=== PATIENT | male | born 1945 | race Caucasian/White ===

== ENCOUNTER 2022-07-23 09:03 | Day surgery (SDC) | payer MEDICARE, SELFPAY ==
--- NOTE | 2022-07-10 11:42 | PC.NURSE ---
07/10: spoke with patient. States surgery was postponed due to positive Covid test. He has an H&P scheduled with Dr Flower at [facility] on 07/19 and a Covid test at that time. He denies questions.
[2022-07-23] VITALS (24 sets, daily range): BP systolic 81–143; BP diastolic 52–91; PULSE 50–96; RESP 12–20; TEMP 36–36.6; O2SAT 91–97; BMI 31.2
[2022-07-23] MEDS: LACTATED RINGERS 1000 ML 1,000 ML 100 ML IV (09:30)
[2022-07-23] MEDS: SODIUM CHLORIDE 0.9 % (FLUSH) 10 ML SYRINGE IVF (10:08)
--- NOTE | 2022-07-23 10:44 | CRLHL7_ITS ---
For Patients: As a result of the Cures Act, medical imaging exams and procedure reports are released immediately into your electronic medical record. You may view this report before your referring provider. If you have questions, please contact your health care provider. Indication: post op Technique: Two views left knee Findings/Impression: Hardware from a left total knee arthroplasty is in satisfactory position. Bone alignment is normal. No sign of acute fracture. Postop changes are within normal limits. Dictated by Redd Tariq MD @ 07/23/2022 3:46:52 PM (Electronically Signed)
[2022-07-23] MEDS: OXYCODONE (CR) 10 MG TAB.ER.12H PO (11:45)
[2022-07-23] MEDS: CELECOXIB 200 MG CAPSULE PO ×2 (11:45→21:22)
[2022-07-23] MEDS: ACETAMINOPHEN 500 MG TABLET 1000 MG PO ×2 (11:45→18:31)
[2022-07-23] MEDS: MIDAZOLAM HCL 1 MG/ML inj IVP (11:53)
[2022-07-23] MEDS: fentaNYL 100 MCG/2 ML inj IVP (11:53)
[2022-07-23] MEDS: TRANEXAMIC ACID 100 MG/ML INJ 1000 MG IV (12:45)
--- NOTE | 2022-07-23 12:46 | P.NB_ITS ---
Nerve Block Nerve Block Time Seen by Provider: 11:53 Date Seen: 07/23/22 Type of block requested by surgeon for post-operative analgesia: adductor canal Side: left Time out performed: Yes Verification of patient name: Yes Verification of date of : Yes Site marking: site marked Name of person performing procedure: Mikal Continuous monitoring Was continuous monitoring of O2 sat, B/P, windows laptop technician, recorded every 15 minutes?: Yes Procedure Checklist: sterile prep, needles and gloves Ultrasound guided. Images saved: Yes Medications given in 5ml increments after negative aspiration: Ropivicaine %: 0.5 mL: 20 Needle gauge: 20 Decadron (mg): 10 Precedex (mcg): 25 Patient tolerated procedure well: Yes Additional comments: Needle noted adjacent to nerve Block Charges Block Charge (with Pro Fee): Femoral Nerve Use of Ultrasound Machine for Block: Yes- US Guidance/pain block
--- NOTE | 2022-07-23 12:47 | W.PM.NB ---
Nerve Block Nerve Block Time Seen by Provider: 11:53 Date Seen: 07/23/22 Type of block requested by surgeon for post-operative analgesia: geniculars Side: left Time out performed: Yes Verification of patient name: Yes Verification of date of : Yes Site marking: site marked Name of person performing procedure: Mikal Continuous monitoring Was continuous monitoring of O2 sat, B/P, vehicle monitor technician, recorded every 15 minutes?: Yes Procedure Checklist: sterile prep, needles and gloves Medications given in 5ml increments after negative aspiration: Ropivicaine %: 0.5 mL: 9 Needle gauge: 25 Patient tolerated procedure well: Yes Block Charges Block Charge (with Pro Fee): Genicular Nerve Block Use of Ultrasound Machine for Block: No
[2022-07-23] MEDS: CEFAZOLIN 2 GM in 0.9 % SODIUM CHLORIDE Mini-bag 100 ML IVPB ×2 (12:50→18:35)
--- NOTE | 2022-07-23 13:37 | W.ANESCHARGE ---
Anesthesia Charges Start Date/Time Anesthesia Start Date: 07/23/22 Anesthesia Start Time: 12:29 Stop Date/Time Anesthesia Stop Date: 07/23/22 Anesthesia Stop Time: 14:40 Summary Emergency: No Extremes of Age: Over 71-CPT 82938
--- NOTE | 2022-07-23 14:03 | P.ORPRC_ITS ---
Procedure Note Date of procedure: 07/23/22 Procedure: PREOPERATIVE DIAGNOSIS: 1. Left knee osteoarthritis, primary, severe POSTOPERATIVE DIAGNOSIS: 1. Left knee osteoarthritis, primary, severe 2. Left knee loose body PROCEDURE: 1. Left total knee arthroplasty 2. Left knee loose body removal (25 mm in greatest dimension, large fragment) SURGEON: Addy Jesus MD. SUPERVISOR AUDIT CLERKS: GLADIS Payne - Of note, a skilled specimen preparation assistant was critical for this case to aid in patient positioning, tissue retraction, limb manipulation/positioning, and closure. ANESTHESIA: Spinal anesthetic EBL: 50ml IMPLANTS: DePuy J&J all cemented TKA - Attune PS femur size 8, size 7 tibia, 7 mm poly spacer, 41mm patella TOURNIQUET: 90 min at 300 torr COMPLICATIONS: None evident INDICATIONS: The patient is a pleasant 77-year-old male who has experienced severe left knee pain and difficulty bearing weight. Workup included x-rays which revealed severe osteoarthrosis in the knee. Given the deformity, the dysfunction, and the pain, as well as the failure of nonoperative management, recommendation was made for surgery. FINDINGS: Full-thickness chondral loss medial compartment with erosion the femur and tibia. Substantial chondromalacia patellofemoral and lateral compartments otherwise. Large posterior osteophyte and loose body. Loose body measured approximately 25 mm in greatest dimension. DESCRIPTION OF PROCEDURE: Following a thorough discussion of risks, benefits, and alternatives consent was obtained and the left knee was marked. The patient was brought to the operating room and placed supine on the operating table. Induction of anesthesia was undertaken. 2 g IV Ancef and 1 g tranexamic acid was administered within 1 hr of incision preoperatively. Proper time-out was performed identifying proper patient, site, procedure. The operative extremity was prepped and draped in the appropriate sterile fashion using ChloraPrep after the patient was positioned supine with all bony prominences well padded. A longitudinal, anterior, midline skin incision was made starting approximately 3cm proximal to the superior pole of the patella and advanced distal to the tibial tubercle. A median parapatellar arthrotomy was created. A medial subperiosteal sleeve was created with knife, ashby elevator and curved osteotome. The retropatellar fatpad was resected and the synovium in the suprapatellar pouch excised to visualize the anterior femoral cortex. Femoral preparation was performed via an intramedullary guide. Step drill allowed access into the femoral canal. The distal cutting guide was placed with 5? of valgus and 11 mm cut on the distal femur due to flexion contracture of 5-7 degrees. Femur was sized using a posterior referencing guide in 3? of external rotation. This found have a best fit with the sizing noted above. The 4 in 1 cutting block was then placed, and the distal femur shaped accordingly. The box cut was then created and the trial implant inserted to confirm appropriate fit. We turned our attention to the proximal tibia. Extramedullary guide was utilized for cutting with the goal of being 90 degree cut from the mechanical axis of the tibia in the varus/valgus plane utilizing tibial crest as the primary alignment. Initially a 1 mm resection was performed from the medial tibial plateau, but due to tightness remains still in full extension, 4 more mm did require resection. Ultimately, balancing was achieved in both flexion and extension in both varus and valgus. The knee was able to achieve full extension as well comfortably. The patella was initially measured and found have a thickness of 25 mm. It was resected back to approximately 14 mm. It was sized to be a best fit with as noted above. This was drilled, trial placed. All trials were placed and found to have an excellent stability and balance. At this stage, trial implants were removed, the knee was thoroughly irrigated with normal saline, and the cement was mixed. After irrigation, the knee was thoroughly dried, and cement placed, with the real tibial and femoral implants placed along with the patella. Trial poly spacer was placed and confirmed to have excellent range of motion and full extension, and the real poly spacer opened and inserted. All extra cement was removed, and a 3 min Betadine soak performed. Finally, a final irrigation round with normal saline was performed. Closure performed with 0 PDS and #0 Stratafix for the quad tendon/retinaculum. 2-0 Vicryl/Stratafix for the subcutaneous and 4-0 Monocryl for subcuticular closure. Dressings were applied and the patient was awoken from anesthesia aft er the tourniquet deflated and transferred the PACU in stable condition. A skilled specimen preparation assistant was critical for this case to aid in patient positioning, tissue retraction, bone exposure, limb manipulation/positioning, patient safety, and closure. PLAN: 1. Weight bear as tolerated operative extremity. 2. 23 hr perioperative antibiotics. 3. Ice. 4. PT/OT consults for ambulation assistance/mobility education. 5. Social work consult for discharge planning. 6. DVT prophylaxis with at SCDs, Andrea Hose, and aspirin twice daily.
--- NOTE | 2022-07-23 15:43 | W.ANESCHARGE ---
Anesthesia Charges Start Date/Time Anesthesia Start Date: 07/23/22 Anesthesia Start Time: 12:29 Stop Date/Time Anesthesia Stop Date: 07/23/22 Anesthesia Stop Time: 14:40 Summary Emergency: No Extremes of Age: Over 71-CPT 01843
--- NOTE | 2022-07-23 17:29 | PM.IMCN1 ---
Date of Consult Patient: Toshia Patient Consult date: 07/23/22 Primary Care Provider: Levi Flower MD Consult Narrative Reason for consult: Medical management of comorbidities Narrative: Seng Nguyễn is a 77 year old male who presented to the hospital today for an elective L TKA with Dr. Jesus of Orthopedic surgery. There were no surgical or anesthetic complications noted during procedure. Patient's H&P reviewed, PCP is Dr. Flower. 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 Rare ETOH. Review of Systems Status of ROS: Reports: 10 or more systems reviewed and unremarkable except as noted in History and below PFSH PFSH Medical History (Updated 07/23/22 @ 17:37 by Nabila Vyas MD) Erectile dysfunction YEYO (obstructive sleep apnea) Peyronie disease Surgical History (Updated 07/23/22 @ 17:37 by Nabila Vyas MD) Hx of cataract extraction Hx of wisdom tooth extraction S/P total knee arthroplasty Family History (Updated 06/12/22 @ 13:26 by Sheryl Bush RN) Mother Alzheimers disease Father Prostate cancer FH: total knee replacement Social History Smoking Status: Former smoker Do you use any of these nicotine containing products: None How often do you have a drink containing alcohol: monthly or less Alcohol type: beer and hard liquor How many standard drinks containing alcohol do you have on a typical day: 1 or 2 AUDIT-C Alcohol total score: 1 Non-prescribed substance use: denies use Caffeine: Yes (coffee, 1-2 cups/a.m.) Meds Home Medications and Allergies Home Medications Medication Instructions Recorded Confirmed Type sildenafil 100 mg tablet (Viagra) 50 mg PO DAILY PRN 06/21/22 06/21/22 History Allergies Allergy/AdvReac Type Severity Reaction Status Date / Time No Known Drug Allergies Allergy Unverified 06/21/22 14:03 Exam Narrative: Exam Narrative: GEN: Alert and oriented, mildly hard of hearing. Sitting comfortably in bed and nontoxic in appearance HEENT: Normal external ears, EOMIs bilaterally, no scleral icterus CV: Sinus bradycardia, no concerning murmurs rubs or gallops R: LCTA bilaterally without concerning wheezing, rales, or rhonchi, air movement adequate Ext: wwp, no concerning edema Skin: No concerning skin lesions or rashes on exposed skin Neuro: Nonfocal Psych: Appropriate Const: Vital Signs, click to edit/add: Vital Signs - 24 hr 07/23/22 10:51 07/23/22 12:15 07/23/22 12:00 Temperature 97.8 F Pulse Rate 56 L 58 L 59 L Pulse Rate [Pulse Oximeter] Respiratory Rate 16 14 14 Blood Pressure 137/78 113/78 111/77 Blood Pressure [Ri ght Arm] Pulse Oximetry 93 91 96 Oxygen Delivery Me thod Room Air Nasal Cannula Nasal Cannula Oxygen Flow Rate 2 2 07/23/22 11:50 07/23/22 11:46 07/23/22 14:35 Temperature 96.8 F L Pulse Rate 61 60 74 Pulse Rate [Pulse Oximeter] Respiratory Rate 16 16 12 Blood Pressure 121/79 118/84 81/53 L Blood Pressure [Ri ght Arm] Pulse Oximetry 97 97 95 Oxygen Delivery Me thod Nasal Cannula Nasal Cannula Room Air Oxygen Flow Rate 2 2 07/23/22 14:40 07/23/22 14:45 07/23/22 14:50 Temperature Pulse Rate 70 67 56 L Pulse Rate [Pulse Oximeter] Respiratory Rate 12 12 12 Blood Pressure 89/54 L 94/52 L 92/54 L Blood Pressure [Ri ght Arm] Pulse Oximetry 95 95 95 Oxygen Delivery Me thod Room Air Room Air Room Air Oxygen Flow Rate 2 2 2 07/23/22 14:55 07/23/22 15:00 07/23/22 15:06 Temperature 97.3 F L Pulse Rate 70 55 L 63 Pulse Rate [Pulse Oximeter] Respiratory Rate 12 12 12 Blood Pressure 95/61 94/55 L 91/59 L Blood Pressure [Ri ght Arm] Pulse Oximetry 95 96 96 Oxygen Delivery Me thod Room Air Room Air Room Air Oxygen Flow Rate 2 2 2 07/23/22 15:19 07/23/22 15:30 07/23/22 15:45 Temperature 97.2 F L 97.2 F L 97.2 F L Pulse Rate 66 Pulse Rate [Pulse Oximeter] 56 L 53 L Respiratory Rate 18 18 18 Blood Pressure Blood Pressure [Ri ght Arm] 120/76 124/73 122/89 Pulse Oximetry 94 94 Oxygen Delivery Me thod Room Air Room Air Room Air Oxygen Flow Rate 07/23/22 16:00 07/23/22 16:15 07/23/22 16:45 Temperature 97.5 F L 97.5 F L 97.5 F L Pulse Rate Pulse Rate [Pulse Oximeter] 56 L 58 L 50 L Respiratory Rate 18 18 18 Blood Pressure Blood Pressure [Ri ght Arm] 125/83 121/91 H 130/81 Pulse Oximetry 97 95 97 Oxygen Delivery Me thod Room Air Room Air Room Air Oxygen Flow Rate 0 0 0 Assessment and Plan Assessment and plan (1) S/P total knee arthroplasty: Status: Acute Plan - routine postoperative cares - pain management and prophylaxis per orthopedic surgery team - anticipate routine postoperative course
--- NOTE | 2022-07-23 18:43 | PC.NURSE ---
End of shift: Patient pleasant and cooperative. Patient vitally stable, lungs clear, BS WNL, IV running LR at 75ml. Patient denies pain. Patient tolerating regular diet, eating 100% of dinner. Patient sat to side of bed and dangled legs, patient attempted to ambulate 2 assist and did not have complete control of legs yet. Patient has not yet urinated. Patient left knee dressing C/D/I.
[2022-07-23] MEDS: LACTATED RINGERS 1000 ML 1,000 ML 75 ML IV (19:50)
[2022-07-23] MEDS: SENNOSIDES 1 TAB TABLET 2 TAB PO (21:21)
[2022-07-23] MEDS: ASPIRIN 81 MG TABLET EC PO (21:22)
[2022-07-23] MEDS: OXYCODONE 5 MG TABLET PO (21:53)
[2022-07-24] MEDS: 0.9 % SODIUM CHLORIDE 500 ML IV (00:07)
[2022-07-24] MEDS: OXYCODONE 5 MG TABLET PO ×3 (00:08→09:04)
[2022-07-24] MEDS: ACETAMINOPHEN 500 MG TABLET 1000 MG PO ×2 (00:09→05:53)
[2022-07-24] MEDS: CEFAZOLIN 2 GM in 0.9 % SODIUM CHLORIDE Mini-bag 100 ML IVPB (02:40)
[2022-07-24 03:00] VITALS: BP 115/67; PULSE 78; RESP 18; TEMP 36.9; O2SAT 96
--- NOTE | 2022-07-24 06:59 | PC.NURSE ---
[id number]: Patient pleasant and cooperative. Pain controlled with PRN Oxycodone x3. Dressing to L. knee C/D/I. CMS intact. Denies N/V. A1/walker/GB. Cryocuff in place. Fluid bolus administered for low urine output with results. Eating and voiding.
[2022-07-24 07:00] VITALS: BP 105/83; PULSE 89; RESP 20; TEMP 37.1; O2SAT 94
[2022-07-24 07:02] LABS: Hematocrit 43.8 % (37.0-53.0); Hemoglobin* 14.7 gm/dL (13.5-17.5); Mean Corpuscular HGB Conc 34 gm/dL (32-36); Mean Corpuscular Hemoglobin 30 pg (26-34); Mean Corpuscular Volume 89 fL (80-100); Platelet Count* 232 K/uL (140-440); Red Blood Count 4.94 m/uL (4.30-5.90); White Blood Count* 17.62 K/uL (4.50-11.00)
[2022-07-24 07:03] LABS: Basophils Percent Auto 0.1 % (0.0-3.0); Immature Granulocytes Pct Auto 1.2 %; Lymphocytes Percent Auto 4.7 % (20-44); Monocytes Percent Auto 4.7 % (0.0-11.0); Neutrophils Percent Auto 89.3 % (42.0-72.0); Slide Review Reflex No
[2022-07-24 07:07] LABS: Blood Urea Nitrogen* 16 mg/dL (7-30); Potassium* 3.9 mmol/L (3.6-5.1); Sodium* 136 mmol/L (135-149)
[2022-07-24 07:48] LABS: Est. Creatinine Clearance* 68.98; Estimated Glomerular Filt Rate 78 ml/min
--- NOTE | 2022-07-24 08:23 | PM.ORPN ---
Subjective Subjective Date Seen: 07/24/22 Principal diagnosis: Status postop day 1 left total knee arthroplasty Interval history: Patient reports doing well. No acute events over night. Pain managed with scheduled /PRN medications and ice. No pain when sitting still, increased pain with motion. DVT prophylaxis 81 mg aspirin by mouth twice daily, bilateral knee high Andrea stockings, and SCDs. Denies fevers, chills, aches, N/V, CP, SOB/PATTEN, tachycardia, or lightheadedness. Ortho Exam Narrative Exam Narrative: -Patient appears comfortable; no apparent acute distress -Alert and oriented times 3 -Operative knee moderately swollen; soft tissues supple; no ecchymosis; no erythematous streaking Warmth appropriate -Surgical dressing clean, dry, intact; no drainage -Bilateral calfs soft; no significant swelling, edema, tenderness, erythema, discoloration, warmth, or palpable cords -2+ DP/PT pulses, intact dermatomes and myotomes distally (5/5 strength) Const Vital Signs, click to edit/add: Vital Signs - 24 hr 07/23/22 10:51 07/23/22 12:15 07/23/22 12:00 Temperature 97.8 F Pulse Rate 56 L 58 L 59 L Pulse Rate [Pulse Oximeter] Respiratory Rate 16 14 14 Blood Pressure 137/78 113/78 111/77 Blood Pressure [Right Arm] Pulse Oximetry 93 91 96 Oxygen Delivery Method Room Air Nasal Cannula Nasal Cannula Oxygen Flow Rate 2 2 07/23/22 11:50 07/23/22 11:46 07/23/22 14:35 Temperature 96.8 F L Pulse Rate 61 60 74 Pulse Rate [Pulse Oximeter] Respiratory Rate 16 16 12 Blood Pressure 121/79 118/84 81/53 L Blood Pressure [Right Arm] Pulse Oximetry 97 97 95 Oxygen Delivery Method Nasal Cannula Nasal Cannula Room Air Oxygen Flow Rate 2 2 07/23/22 14:40 07/23/22 14:45 07/23/22 14:50 Temperature Pulse Rate 70 67 56 L Pulse Rate [Pulse Oximeter] Respiratory Rate 12 12 12 Blood Pressure 89/54 L 94/52 L 92/54 L Blood Pressure [Right Arm] Pulse Oximetry 95 95 95 Oxygen Delivery Method Room Air Room Air Room Air Oxygen Flow Rate 2 2 2 07/23/22 14:55 07/23/22 15:00 07/23/22 15:06 Temperature 97.3 F L Pulse Rate 70 55 L 63 Pulse Rate [Pulse Oximeter] Respiratory Rate 12 12 12 Blood Pressure 95/61 94/55 L 91/59 L Blood Pressure [Right Arm] Pulse Oximetry 95 96 96 Oxygen Delivery Method Room Air Room Air Room Air Oxygen Flow Rate 2 2 2 07/23/22 15:19 07/23/22 15:30 07/23/22 15:45 Temperature 97.2 F L 97.2 F L 97.2 F L Pulse Rate 66 Pulse Rate [Pulse Oximeter] 56 L 53 L Respiratory Rate 18 18 18 Blood Pressure Blood Pressure [Right Arm] 120/76 124/73 122/89 Pulse Oximetry 94 94 Oxygen Delivery Method Room Air Room Air Room Air Oxygen Flow Rate 07/23/22 16:00 07/23/22 16:15 07/23/22 16:45 Temperature 97.5 F L 97.5 F L 97.5 F L Pulse Rate Pulse Rate [Pulse Oximeter] 56 L 58 L 50 L Respiratory Rate 18 18 18 Blood Pressure Blood Pressure [Right Arm] 125/83 121/91 H 130/81 Pulse Oximetry 97 95 97 Oxygen Delivery Method Room Air Room Air Room Air Oxygen Flow Rate 0 0 0 07/23/22 17:15 07/23/22 18:15 07/23/22 19:00 Temperature 97.5 F L 97.7 F 97.5 F L Pulse Rate Pulse Rate [Pulse Oximeter] 52 L 76 91 Respiratory Rate 18 18 20 Blood Pressure Blood Pressure [Right Arm] 139/80 143/88 H 119/66 Pulse Oximetry 97 94 96 Oxygen Delivery Method Room Air Room Air Room Air Oxygen Flow Rate 0 0 0 07/23/22 20:00 07/23/22 21:00 07/23/22 23:00 Temperature 97.5 F L 97.7 F 97.7 F Pulse Rate Pulse Rate [Pulse Oximeter] 93 96 96 Respiratory Rate 18 18 18 Blood Pressure Blood Pressure [Right Arm] 120/78 130/81 130/81 Pulse Oximetry 94 95 95 Oxygen Delivery Method Room Air Room Air Room Air Oxygen Flow Rate 0 0 07/23/22 23:00 07/24/22 03:00 07/24/22 07:00 Temperature 98.4 F 98.8 F Pulse Rate Pulse Rate [Pulse Oximeter] 78 89 Respiratory Rate 18 20 Blood Pressure Blood Pressure [Right Arm] 115/67 105/83 Pulse Oximetry 95 96 94 Oxygen Delivery Method Room Air Room Air Oxygen Flow Rate 07/24/22 07:00 07/24/22 07:00 Temperature Pulse Rate Pulse Rate [Pulse Oximeter] 89 Respiratory Rate 20 Blood Pressure Blood Pressure [Right Arm] Pulse Oximetry 94 Oxygen Delivery Method Oxygen Flow Rate Assessment and Plan Assessment and plan (1) S/P total knee arthroplasty: Problem details: POD 1 left total knee arthroplasty Status: Acute Plan - Complete 23 hour perioperative antibiotics. - PT/OT consult for education and assistance. - Social work consult for discharge planning - Prescribed analgesics as needed - DVT prophylaxis: 81 mg aspirin by mouth twice daily, bilateral knee high Andrea Hose stockings and SCDs - Anticipation is for discharge to home with spouse (07/24/2022) if the patient remains medically stable, pain is controlled, and they are safe with mobilization.
--- NOTE | 2022-07-24 08:26 | P.DS_ITS ---
DS: Providers Provider Date Seen: 07/24/22 Date of admission: Med/Surg Recovery 07/23/2022 Primary care physician: Levi Flower MD Consults: 07/23/22 15:32 Consult to Occupational Therapy [CONS] Routine Comment: Reason(s) for OT Consult:: ADLs Prior to Discharge Any Restrictions?:: See Comment Comment: See nursing activity order for any restrictions. Consult to Physical Therapy [CONS] Routine Comment: Ambulate in the [place] today. Reason(s) for PT Consult:: TKA TX Protocol POD#0 Any Restrictions?:: See Comment Comment: See nursing activity order for any restrictions. Consult to Physician [CONS] Routine Comment: Consulting Provider: Hospitalists Has provider been notified: No Consult to Business Technology Analyst [CONS] Routine Comment: Reason for Consult:: Discharge Planning Needs Attending Physician on discharge: Addy Jesus MD Date of Discharge: 07/24/22 DS: Diagnosis Discharge Diagnosis (1) S/P total knee arthroplasty: Status: Acute Problem details: POD 1 left total knee arthroplasty due to left knee osteoarthritis, primary, severe DS: Summary Hospital Course Hospital Course: The patient has a history of left knee osteoarthritis, primary, severe. After appropriate preoperative evaluation, the patient underwent left total knee arthroplasty. Postoperatively given anticoagulation for deep vein thrombosis prophylaxis. They progressed to PT/OT and were felt ready and prepared for discharge to home with appropriate pain medication and anticoagulation medications. Status at Discharge Functional status at discharge: uses cane/walker Overall status at discharge: patient is progressing back to baseline Time Spent with Patient Time attestation: Total time spent providing and/or coordinating discharge services: Exam Const: Vital Signs, click to edit/add: Vital Signs - 24 hr 07/23/22 10:51 07/23/22 12:15 07/23/22 12:00 Temperature 97.8 F Pulse Rate 56 L 58 L 59 L Pulse Rate [Pulse Oximeter] Respiratory Rate 16 14 14 Blood Pressure 137/78 113/78 111/77 Blood Pressure [Ri ght Arm] Pulse Oximetry 93 91 96 Oxygen Delivery Me thod Room Air Nasal Cannula Nasal Cannula Oxygen Flow Rate 2 2 07/23/22 11:50 07/23/22 11:46 07/23/22 14:35 Temperature 96.8 F L Pulse Rate 61 60 74 Pulse Rate [Pulse Oximeter] Respiratory Rate 16 16 12 Blood Pressure 121/79 118/84 81/53 L Blood Pressure [Ri ght Arm] Pulse Oximetry 97 97 95 Oxygen Delivery Me thod Nasal Cannula Nasal Cannula Room Air Oxygen Flow Rate 2 2 07/23/22 14:40 07/23/22 14:45 07/23/22 14:50 Temperature Pulse Rate 70 67 56 L Pulse Rate [Pulse Oximeter] Respiratory Rate 12 12 12 Blood Pressure 89/54 L 94/52 L 92/54 L Blood Pressure [Ri ght Arm] Pulse Oximetry 95 95 95 Oxygen Delivery Me thod Room Air Room Air Room Air Oxygen Flow Rate 2 2 2 07/23/22 14:55 07/23/22 15:00 07/23/22 15:06 Temperature 97.3 F L Pulse Rate 70 55 L 63 Pulse Rate [Pulse Oximeter] Respiratory Rate 12 12 12 Blood Pressure 95/61 94/55 L 91/59 L Blood Pressure [Ri ght Arm] Pulse Oximetry 95 96 96 Oxygen Delivery Me thod Room Air Room Air Room Air Oxygen Flow Rate 2 2 2 07/23/22 15:19 07/23/22 15:30 07/23/22 15:45 Temperature 97.2 F L 97.2 F L 97.2 F L Pulse Rate 66 Pulse Rate [Pulse Oximeter] 56 L 53 L Respiratory Rate 18 18 18 Blood Pressure Blood Pressure [Ri ght Arm] 120/76 124/73 122/89 Pulse Oximetry 94 94 Oxygen Delivery Me thod Room Air Room Air Room Air Oxygen Flow Rate 07/23/22 16:00 07/23/22 16:15 07/23/22 16:45 Temperature 97.5 F L 97.5 F L 97.5 F L Pulse Rate Pulse Rate [Pulse Oximeter] 56 L 58 L 50 L Respiratory Rate 18 18 18 Blood Pressure Blood Pressure [Ri ght Arm] 125/83 121/91 H 130/81 Pulse Oximetry 97 95 97 Oxygen Delivery Me thod Room Air Room Air Room Air Oxygen Flow Rate 0 0 0 07/23/22 17:15 07/23/22 18:15 07/23/22 19:00 Temperature 97.5 F L 97.7 F 97.5 F L Pulse Rate Pulse Rate [Pulse Oximeter] 52 L 76 91 Respiratory Rate 18 18 20 Blood Pressure Blood Pressure [Ri ght Arm] 139/80 143/88 H 119/66 Pulse Oximetry 97 94 96 Oxygen Delivery Me thod Room Air Room Air Room Air Oxygen Flow Rate 0 0 0 07/23/22 20:00 07/23/22 21:00 07/23/22 23:00 Temperature 97.5 F L 97.7 F 97.7 F Pulse Rate Pulse Rate [Pulse Oximeter] 93 96 96 Respiratory Rate 18 18 18 Blood Pressure Blood Pressure [Ri ght Arm] 120/78 130/81 130/81 Pulse Oximetry 94 95 95 Oxygen Delivery Me thod Room Air Room Air Room Air Oxygen Flow Rate 0 0 07/23/22 23:00 07/24/22 03:00 07/24/22 07:00 Temperature 98.4 F 98.8 F Pulse Rate Pulse Rate [Pulse Oximeter] 78 89 Respiratory Rate 18 20 Blood Pressure Blood Pressure [Ri ght Arm] 115/67 105/83 Pulse Oximetry 95 96 94 Oxygen Delivery Me thod Room Air Room Air Oxygen Flow Rate 07/24/22 07:00 07/24/22 07:00 Temperature Pulse Rate Pulse Rate [Pulse Oximeter] 89 Respiratory Rate 20 Blood Pressure Blood Pressure [Ri ght Arm] Pulse Oximetry 94 Oxygen Delivery Me thod Oxygen Flow Rate DS: Data Data Completed and Pending Labs on day of discharge: Labs from last 24 hours 07/24/22 07/24/22 06:03 06:03 WBC 17.62 H RBC 4.94 Hgb 14.7 Hct 43.8 MCV 89 MCH 30 MCHC 34 Plt Count 232 Neut % (Auto) 89.3 H Lymph % (Auto) 4.7 L [place] % (Auto) 4.7 Eos % (Auto) 0.0 Baso % (Auto) 0.1 Neut # (Auto) 15.70 H Lymph # (Auto) 0.80 L [place] # (Auto) 0.80 Eos # (Auto) 0.00 Baso # (Auto) 0.00 Sodium 136 Potassium 3.9 BUN 16 Creatinine 1.0 Estimated Creat Clear 68.98 Estimated GFR 78 Discharge Plan Discharge Disposition: Home, Self-Care Discharging Surgeon: Adyd Jesus Follow-Up Appointment: 1 week PO with R[facility] Prescriptions: New sennosides-docusate sodium [Senna-S] 8.6-50 mg tablet 1 - 4 tab-cap PO BID PRN (Reason: constipation) Qty: 60 0RF Rx Instructions: Hold medication if experiencing loose stools. aspirin 81 mg tablet,delayed release (DR/EC) 81 mg PO BID Qty: 60 0RF Rx Instructions: Medication to help prevent blood clots postoperatively; take TWICE daily. celecoxib 100 mg capsule 100 mg PO BID Qty: 60 0RF acetaminophen 500 mg capsule 500 - 1,000 mg PO Q6H MDD 4000mg PRNQty: 100 0RF oxycodone 5 mg tablet 2.5 - 5 mg PO Q4-6H MDD 6 PRN (Reason: pain) Qty: 42 0RF Rx Instructions: Take as needed for postop pain: 2.5mg mild pain, 5mg moderate-severe pain; wean as tolerated. No Action sildenafil [Viagra] 100 mg tablet 50 mg PO DAILY PRN Rx Instructions: administer 30 minutes to 4 hours before activity Activity Level: Activity as Tolerated, Weight Bearing as Tolerated, Use Cane and Use Walker Activity Detail: Wound: ?Do not remove original dressing; we will remove this at first postop visit in 1 week. Only remove dressing if integrity is in question. ?No immersing wound in water; showering okay; light scrub with your hand and body soap, rinse, dab dry ?Sutures are under the skin, will dissolve; allow surgical glue to come off naturally; do not scrub the wound or apply ointments/lotions ?Call our office with any redness that streaks, excessive drainage from the wound, or wound gapping. Ice/Elevate: ?Ice as needed for swelling and discomfort (cryocuff or ice pack); elevate frequently above the heart SADIA socks: ?Wear for 1 month, remove for 1 hour 3 times per day ?These are frustrating to take on/off, but are important for blood clot prevention for 1 month after surgery Blood Clot Prevention (DVT): ?Medication: 81 mg aspirin by mouth twice daily (1 month) Driving: ?Do not drive while taking narcotic pain medication ?Anticipate 4-6 weeks no driving if operative leg is driving leg Dental: ?No elective dental work for 6 months post-op. If there is an urgent/emergent dental need, contact our office for an antibiotic prescription. Smoking/Alcohol: ?Do not smoke; do no drink alcohol especially when taking postoperative oral narcotic medication Seek Care from you Primary Care Provider if you experience the following issues in the postoperative phase and beyond: ?Bacterial infections such as: pneumonia, bacterial skin infection (cellulitis), UTI, high fever, chills unrelated to the operative body part - call your primary care physician urgently for treatment in hopes to protect your health and the metal implant. Referrals: ?PT, OT per patient preference - evaluate treat total knee arthroplasty protocol (gait training, ROM, ADLs) Follow up: ?Ortho surgeon follow-up in 6 weeks; repeat radiographs three views operative knee ?PA-C visit in 1 week *If there are any acute concerns regarding your surgery, please call our orthopedic clinic ([phone]) Discharge Diet: Regular Patient Instructions: Surgical Site Infections (DC) Forms: Work/School Release Follow-up: Levi Flower MD [Primary Care Provider] - Discharge Orders: Discharge Order (Routine); Ordered 07/24/22 Ordered By: Bassam Flowers
[2022-07-24] MEDS: ASPIRIN 81 MG TABLET EC PO (09:03)
[2022-07-24] MEDS: CELECOXIB 200 MG CAPSULE PO (09:03)
[2022-07-24] MEDS: SENNOSIDES 1 TAB TABLET 2 TAB PO (09:04)
[2022-07-24 09:25] VITALS: BP 91/59; PULSE 66; RESP 20; TEMP 37.1
--- NOTE | 2022-07-24 11:13 | PC.NURSE ---
Discharge: Patient pleasant and cooperative. Patient vitally stable, lungs clear, BS WNL, IV removed, catheter intact. Patient rates knee pain at most 3/10, 5mg oxy given once. Patient 1 assist, walker, gb. Patient tolerating regular diet and urinating. Patient signed belongings sheet and discharge form. Patient and had no further questions regarding discharge. Patient left knee dressing C/D/I.
== END 2022-07-24 11:08 | disposition home or self-care (01) ==
LOC: OR 09:05 → MEDSURG 10:07
PROVIDERS: PCP Family Medicine; Visit Provider Orthopaedic Surgery Sports Medicine
PROC: (CPT 27447; principal; 2022-07-23 11:00)
DX: M17.12 Unilateral primary osteoarthritis, left knee (principal); M23.42 Loose body in knee, left knee; M25.562 Pain in left knee; N48.6 Induration penis plastica; G47.33 Obstructive sleep apnea (adult) (pediatric); N52.9 Male erectile dysfunction, unspecified
CPT/HCPCS: 27447; 27331; 01402; 36415; 64447; 64454; 73560; 76942; 82565; 84132; 84295; 84520; 85025; 97110; 97116; 97161; 97165; 97535; 99100; A9270; C1776; J0690; J1100; J2250; J2704; J2795; J3010; J7120